=== PATIENT | female | born 1985 | race Asian ===

== ENCOUNTER 2020-01-29 16:46 | Outpatient (CLI) | payer OTHER, SELFPAY ==
[2020-01-29 18:14] LABS: Appearance Urine UA SL CLOUDY; Bilirubin Urine UA NEGATIVE (NEGATIVE); Color Urine UA YELLOW; Glucose Urine UA 1+ g/dL (Negative); Ketones Urine UA TRACE (NEGATIVE); Leukocyte Esterase Urine UA NEGATIVE (NEGATIVE); Nitrite Urine UA NEGATIVE (Negative); Occult Blood Urine UA NEGATIVE (Negative); Protein Urine UA NEGATIVE (Negative); Urobilinogen Urine UA 0.2 E.U./dL (0.2)
[2020-01-29 18:21] LABS: Amorphous Sediment Urine 1+; RBC Urine 0-1/HPF (0-5/HPF); Renal Epithelial Cells Urine 1-5/HPF (0-1/HPF); Squamous Epithelial Cell Urine 5-10 /HPF (0-5/HPF); WBC Urine 1-5/HPF (0-5/HPF)
[2020-01-29 18:22] LABS: Bacteria Urine Many (>30); Culture Indicated Urine Specimen Cultured; Mucus Urine 1+ (Negative)
--- NOTE | 2020-01-29 21:22 | P.TNLD_ITS ---
Visit Information Visit Information Date of evaluation: 01/29/20 On-call OB Provider: Zenaida Gandhi Reason for Evaluation: Yes non-stress test Comments/Additional reasons for admission: This patient is a 34yo @31 weeks gestation, presenting with suprapubic pain and pelvic pressure. The patient reports dysuria and urinary frequency, but also has a history of 32 week under unclear circumstances. She reports that she recently moved to the area, and has an upcoming appointment at the [facility]. She denies contractions, vaginal bleeding, LOF or increased discharge, decreased movement, or any other complaints. Vital Signs Vital Signs: 128/74, HR 99, T 36.1C Objective Labs Labs: Laboratory Results - last 24 hr 01/29/20 18:00 Urine Color Yellow Urine Appearance Sl cloudy Urine pH 7.0 Ur Specific [place] 1.010 Urine Protein Negative Urine Glucose (UA) 1+ H Urine Ketones Trace H Urine Occult Blood Negative Urine Nitrate Negative Urine Bilirubin Negative Urine Urobilinogen 0.2 Ur Leukocyte Esterase Negative Urine RBC 0-1/hpf Urine WBC 1-5/hpf Ur Squamous Epith Cells 5-10 /hpf H Ur Renal Epithelial Cell 1-5/hpf H Amorphous Sediment 1+ Urine Bacteria Many (>30) H Urine Mucus 1+ H Ur Culture Indicated? Specimen cultured Evaluation Evaluation Baseline heart rate: 135 Variability: Moderate (11-25) monitor accelerations: Present monitor decelerations: Absent Contraction Frequency (minutes): 0 Category of Tracing: I Cervical dilation (cm): 0 Cervical effacement (%): 20 station: -3 Laboratory results: Laboratory Tests 01/29/20 18:00 Urine Color Yellow Urine Appearance Sl cloudy Urine pH 7.0 Ur Specific [place] 1.010 Urine Protein Negative Urine Glucose (UA) 1+ H Urine Ketones Trace H Urine Occult Blood Negative Urine Nitrate Negative Urine Bilirubin Negative Urine Urobilinogen 0.2 Ur Leukocyte Esterase Negative Urine RBC 0-1/hpf Urine WBC 1-5/hpf Ur Squamous Epith Cells 5-10 /hpf H Ur Renal Epithelial Cell 1-5/hpf H Amorphous Sediment 1+ Urine Bacteria Many (>30) H Urine Mucus 1+ H Ur Culture Indicated? Specimen cultured Diagnosis, Plan/Disposition Plan/Disposition Plan: No allergies reported to nursing staff. No signs of labor with closed, long cervix and no contractions. Patient symptomatically improved with PO hydration and has UA very consistent with UTI. Home with routine precautions, macrobid called to preferred pharmacy. OB Disposition: home
== END 2020-01-29 18:48 | disposition home or self-care (01) ==
LOC: LABOR 17:18 → OB 01-30 10:57
PROVIDERS: Referring Provider Obstetrics & Gynecology; Visit Provider Obstetrics & Gynecology
DX: O26.893 Other specified pregnancy related conditions, third trimester (principal); R10.2 Pelvic and perineal pain; M54.5 Low back pain; R30.0 Dysuria; R35.0 Frequency of micturition; Z3A.31 31 weeks gestation of pregnancy
CPT/HCPCS: 59025; 59050; 81001; 87077; 87086; 87147; G0378; G0379

== ENCOUNTER 2020-02-25 13:11 | Outpatient (CLI) | payer OTHER, SELFPAY ==
[2020-02-25 13:45] LABS: Appearance Urine UA CLOUDY; Bilirubin Urine UA NEGATIVE (NEGATIVE); Color Urine UA YELLOW; Glucose Urine UA NEGATIVE (Negative); Ketones Urine UA 1+ (NEGATIVE); Leukocyte Esterase Urine UA NEGATIVE (NEGATIVE); Nitrite Urine UA NEGATIVE (Negative); Occult Blood Urine UA TRACE-LYSED (Negative); Protein Urine UA 1+ (Negative); Specific Gravity Urine UA 1.025 (1.000-1.035); Urobilinogen Urine UA 0.2 E.U./dL (0.2)
--- NOTE | 2020-02-25 14:12 | P.TNLD_ITS ---
Visit Information Visit Information Date of evaluation: 02/25/20 Primary OB Provider: Zenaida Gandhi Comments/Additional reasons for admission: This patient is a 34-year-old 102 at 35 weeks 0 days with a recent transfer of care from the [facility], presenting 3 occurs after calling with q.3 abdominal pains. 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 Denies LOF, VB, decreased movement. Reports pain is constant, associated with patient movement, is also in upper abdomen and at pubic symphysis, correlates with movement. Vital Signs Vital Signs: 138/66, HR 106 PFSH Medical History Adult body mass index 30+ (Acute) Eczema (Acute) GBS (group B streptococcus) UTI complicating (Acute ~01/29/20) Latent tuberculosis infection (Acute) Ovarian cyst (Acute) labor in second trimester with delivery (Acute ~04/18/13) Spongiotic dermatitis (Acute) Tuberculosis exposure (Acute) Family History Mother No problems noted. Father No problems noted. Grandfather Cancer Lung cancer Grandmother Diabetes mellitus Hypertension Osteoporosis Grandfather No problems noted. 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) current occupational exposures/hazards: Yes special doni needs: No Review of Systems Constitutional Constitutional: Reports system reviewed and no additional complaints, except as documented Cardiovascular Cardiovascular: Reports system reviewed and no additional complaints, except as documented Exam Const General: cooperative, healthy appearing, comfortable and acute distress Other: Per nursing staff, abdomen soft, nontender, obese Objective Labs Result Diagrams: 02/25/20 14:15 02/25/20 14:15 Labs: Laboratory Results - last 24 hr 02/25/20 13:10 Urine Color Yellow Urine Appearance Cloudy Urine pH 6.0 Ur Specific [place] 1.025 Urine Protein 1+ H Urine Glucose (UA) Negative Urine Ketones 1+ H Urine Occult Blood Trace-lysed Urine Nitrate Negative Urine Bilirubin Negative Urine Urobilinogen 0.2 Ur Leukocyte Esterase Negative Evaluation Evaluation Baseline heart rate: 135 Variability: Moderate (11-25) monitor accelerations: Present monitor decelerations: Absent Category of Tracing: Reactive Laboratory results: Laboratory Tests 02/25/20 13:10 Urine Color Yellow Urine Appearance Cloudy Urine pH 6.0 Ur Specific [place] 1.025 Urine Protein 1+ H Urine Glucose (UA) Negative Urine Ketones 1+ H Urine Occult Blood Trace-lysed Urine Nitrate Negative Urine Bilirubin Negative Urine Urobilinogen 0.2 Ur Leukocyte Esterase Negative Comments: One contraction during 1 hour of monitoring. Diagnosis, Plan/Disposition Plan/Disposition Plan: This patient does not appear to have a UTI, though she is dehydrated. Her abdominal pain is primarily with her own movement and with movement, and we discussed pubic symphysis separation pain and coping mechanisms at her last visit. Antepartum precautions were discussed, and patient has repeat visit scheduled later this week. Patient to take Tylenol, use belly support band, provided note for breaks and hydration at work. OB Disposition: home
[2020-02-25 14:25] LABS: Add Manual Diff / Slide Review NO; Basophils Absolute Auto 100 /uL (0-100); Basophils Percent Auto 0.5 % (0-2); Eosinophils Absolute Auto 100 /uL (0-450); Eosinophils Percent Auto 1.1 % (2-4); Hematocrit 35.5 % (36-46); Hemoglobin 12.2 g/dL (12.0-16.0); Lymphocytes Absolute Auto 2200 /uL (1100-4500); Lymphocytes Percent Auto 21.8 % (25-40); Mean Corpuscular HGB Conc 34.3 % (30-36); Mean Corpuscular Hemoglobin 27.5 PG (26-34); Mean Corpuscular Volume 80.4 fL (80-100); Monocytes Absolute Auto 500 /uL (0-900); Monocytes Percent Auto 5.2 % (3-14); Neutrophils Absolute Auto 7100 /uL (1500-7000); Neutrophils Percent Auto 71.4 % (50-75); Platelet Count 234 X10^3/uL (150-400); Red Blood Cell Count 4.42 X10^6/uL (4.0-5.2); Red Cell Distribution Width 13.2 % (11.6-14.8)
[2020-02-25 14:35] LABS: Aspartate Aminotransferase 17 IU/L (14-36); BUN Creatinine Ratio 11.3 (6-22); Blood Urea Nitrogen 8 mg/dL (7-17); Estimated Glomerular Filt Rate > 60.0 mL/min (>60); Uric Acid 3.5 mg/dL (2.5-6.2)
[2020-02-25 15:19] LABS: Creatinine Urine Random 239.8 mg/dL; Protein (Total) Urine Random 17 mg/dL (0-12); Protein Creatinine Ratio Urine 0.07 GRAM/24H
== END 2020-02-25 14:26 | disposition home or self-care (01) ==
LOC: OB 16:42
PROVIDERS: Referring Provider Obstetrics & Gynecology; Visit Provider Obstetrics & Gynecology
DX: O26.893 Other specified pregnancy related conditions, third trimester (principal); E86.0 Dehydration; R10.9 Unspecified abdominal pain; Z3A.35 35 weeks gestation of pregnancy
CPT/HCPCS: 36415; 59025; 81003; 82570; 84156; 84450; 84550; 85025; G0378; G0379

== ENCOUNTER 2020-03-11 20:14 | Observation (INO) | payer OTHER, SELFPAY ==
[2020-03-11 20:37] LABS: Add Manual Diff / Slide Review NO; Basophils Absolute Auto 0 /uL (0-100); Basophils Percent Auto 0.4 % (0-2); Eosinophils Absolute Auto 100 /uL (0-450); Eosinophils Percent Auto 1.4 % (2-4); Hematocrit 36.9 % (36-46); Hemoglobin 12.5 g/dL (12.0-16.0); Lymphocytes Absolute Auto 2300 /uL (1100-4500); Mean Corpuscular HGB Conc 33.8 % (30-36); Mean Corpuscular Hemoglobin 27.2 PG (26-34); Mean Corpuscular Volume 80.4 fL (80-100); Monocytes Absolute Auto 700 /uL (0-900); Neutrophils Absolute Auto 5300 /uL (1500-7000); Neutrophils Percent Auto 63.2 % (50-75); Platelet Count 254 X10^3/uL (150-400); Red Blood Cell Count 4.59 X10^6/uL (4.0-5.2); Red Cell Distribution Width 13.5 % (11.6-14.8); White Blood Cell Count 8.4 X10^3/uL (4.5-11.0)
[2020-03-11 20:52] LABS: Aspartate Aminotransferase 18 IU/L (14-36); Blood Urea Nitrogen 6 mg/dL (7-17); Estimated Glomerular Filt Rate > 60.0 mL/min (>60); Uric Acid 3.1 mg/dL (2.5-6.2)
[2020-03-11] MEDS: METOCLOPRAMIDE HCL 10 MG TABLET PO (21:03)
[2020-03-11] MEDS: ACETAMINOPHEN 325 MG TABLET 650 MG PO (21:03)
[2020-03-11 22:12] LABS: Protein (Total) Urine Random 17 mg/dL (0-12)
[2020-03-11 22:15] LABS: Creatinine Urine Random 66.8 mg/dL; Protein Creatinine Ratio Urine 0.25 GRAM/24H
--- NOTE | 2020-03-11 22:31 | PM.OBTRLD ---
Visit Information Visit Information Date of evaluation: 03/12/20 Primary OB Provider: Zenaida Gandhi Reason for Evaluation: Yes non-stress test Comments/Additional reasons for admission: Patient with a history of PIH and morbid obesity presents with 3 day DELANEY, for PIH labs and BP monitoring. Vital Signs Vital Signs: 130-134/60-78 [facility] Medical History Adult body mass index 30+ (Acute) Eczema (Acute) GBS (group B streptococcus) UTI complicating (Acute ~01/29/20) Latent tuberculosis infection (Acute) Ovarian cyst (Acute) labor in second trimester with delivery (Acute ~04/18/13) Spongiotic dermatitis (Acute) Tuberculosis exposure (Acute) Family History Mother No problems noted. Father No problems noted. Grandfather Cancer Lung cancer Grandmother Diabetes mellitus Hypertension Osteoporosis Grandfather No problems noted. 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) current occupational exposures/hazards: Yes special doni needs: No Review of Systems Constitutional Constitutional: Reports as per HPI Objective Labs Result Diagrams: 03/11/20 20:30 03/11/20 20:30 Labs: Laboratory Results - last 24 hr 03/11/20 03/11/20 03/11/20 20:30 20:30 21:00 WBC 8.4 RBC 4.59 Hgb 12.5 Hct 36.9 MCV 80.4 MCH 27.2 MCHC 33.8 RDW 13.5 Plt Count 254 Neut % (Auto) 63.2 Lymph % (Auto) 27.0 [place] % (Auto) 8.0 Eos % (Auto) 1.4 L Baso % (Auto) 0.4 Neut # (Auto) 5300 Lymph # (Auto) 2300 [place] # (Auto) 700 Eos # (Auto) 100 Baso # (Auto) 0 BUN 6 L Creatinine 0.46 L Estimated GFR > 60.0 BUN/Creatinine Ratio 13.0 Uric Acid 3.1 AST 18 U Random Total Protein 17 H Urine Creatinine 66.8 Protein/Creatinin Ratio 0.25 Evaluation Evaluation Baseline heart rate: 145 Variability: Moderate (11-25) monitor accelerations: Present monitor decelerations: Absent Laboratory results: Laboratory Tests 03/11/20 03/11/20 03/11/20 20:30 20:30 21:00 WBC 8.4 RBC 4.59 Hgb 12.5 Hct 36.9 MCV 80.4 MCH 27.2 MCHC 33.8 RDW 13.5 Plt Count 254 Neut % (Auto) 63.2 Lymph % (Auto) 27.0 Sullivan % (Auto) 8.0 Eos % (Auto) 1.4 L Baso % (Auto) 0.4 Neut # (Auto) 5300 Lymph # (Auto) 2300 [place] # (Auto) 700 Eos # (Auto) 100 Baso # (Auto) 0 BUN 6 L Creatinine 0.46 L Estimated GFR > 60.0 BUN/Creatinine Ratio 13.0 Uric Acid 3.1 AST 18 U Random Total Protein 17 H Urine Creatinine 66.8 Protein/Creatinin Ratio 0.25 Diagnosis, Plan/Disposition Plan/Disposition Plan: Improved s/p reglan and tylenol, resumed baseline BPs per transfer records and with normal PIH labs. Home with precautions and clinic f/u within next few days. OB Disposition: home
== END 2020-03-11 23:15 | disposition home or self-care (01) ==
PROVIDERS: Admitting Provider Obstetrics & Gynecology; PCP Obstetrics & Gynecology; Referring Provider Obstetrics & Gynecology; Visit Provider Obstetrics & Gynecology
DX: O26.893 Other specified pregnancy related conditions, third trimester (principal); R51 Headache; Z3A.37 37 weeks gestation of pregnancy; Z87.59 Personal history of other complications of pregnancy, childbirth and the puerperium
CPT/HCPCS: 36415; 59025; 59050; 82570; 84156; 84450; 84550; 85025; G0378; G0379

== ENCOUNTER 2020-03-14 18:57 | Outpatient (CLI) | payer OTHER, SELFPAY ==
[2020-03-14 20:20] LABS: Appearance Urine UA SL CLOUDY; Bilirubin Urine UA NEGATIVE (NEGATIVE); Color Urine UA YELLOW; Glucose Urine UA 1+ g/dL (Negative); Ketones Urine UA NEGATIVE (NEGATIVE); Leukocyte Esterase Urine UA NEGATIVE (NEGATIVE); Nitrite Urine UA NEGATIVE (Negative); Occult Blood Urine UA NEGATIVE (Negative); Protein Urine UA TRACE (Negative); RBC Urine None Seen (0-5/HPF); Specific Gravity Urine UA 1.015 (1.000-1.035); Urobilinogen Urine UA 0.2 E.U./dL (0.2)
[2020-03-14 20:25] LABS: pH Urine UA 6.5 (4.5-8.0)
[2020-03-14 20:28] LABS: Squamous Epithelial Cell Urine 5-10 /HPF (0-5/HPF); WBC Urine 5-10/HPF (0-5/HPF)
[2020-03-14 20:29] LABS: Amorphous Sediment Urine 1+; Bacteria Urine Many (>30); Culture Indicated Urine Specimen Cultured; Mucus Urine 1+ (Negative)
--- NOTE | 2020-03-14 20:50 | PM.OBTRLD ---
Visit Information Visit Information Date of evaluation: 03/14/20 Primary OB Provider: Zenaida Gandhi Reason for Evaluation: Yes rule out labor Comments/Additional reasons for admission: This patient is a 34yo P2 @37 weeks gestation presenting for evaluation for SROM and labor. Vital Signs Vital Signs: With appropriate cuff, 116-132/59-69. [facility] Medical History Adult body mass index 30+ (Acute) Eczema (Acute) GBS (group B streptococcus) UTI complicating (Acute ~01/29/20) Latent tuberculosis infection (Acute) Ovarian cyst (Acute) labor in second trimester with delivery (Acute ~04/18/13) Spongiotic dermatitis (Acute) Tuberculosis exposure (Acute) Family History Mother No problems noted. Father No problems noted. Grandfather Cancer Lung cancer Grandmother Diabetes mellitus Hypertension Osteoporosis Grandfather No problems noted. 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 Specimen cultured Evaluation Evaluation Baseline heart rate: 150 Variability: Moderate (11-25) monitor accelerations: Present monitor decelerations: Absent Category of Tracing: Reactive Laboratory results: Laboratory Tests 03/14/20 20:20 Urine Color Yellow Urine Appearance Sl cloudy Urine pH 6.5 Ur Specific [place] 1.015 Urine Protein Trace H Urine Glucose (UA) 1+ H Urine Ketones Negative Urine Occult Blood Negative Urine Nitrate Negative Urine Bilirubin Negative Urine Urobilinogen 0.2 Ur Leukocyte Esterase Negative Urine RBC None seen Urine WBC 5-10/hpf H Ur Squamous Epith Cells 5-10 /hpf H Amorphous Sediment 1+ Urine Bacteria Many (>30) H Urine Mucus 1+ H Ur Culture Indicated? Specimen cultured Non-invasive Membranes Rupture Test: negative Diagnosis, Plan/Disposition Plan/Disposition Plan: Patient not ruptured, UA + for signs of UTI. Discharged with PO keflex and precautions. OB Disposition: home
== END 2020-03-14 20:46 | disposition home or self-care (01) ==
LOC: LABOR 18:59 → OB 03-17 12:31
PROVIDERS: PCP Obstetrics & Gynecology; Referring Provider Obstetrics & Gynecology; Visit Provider Obstetrics & Gynecology
DX: Z34.83 Encounter for supervision of other normal pregnancy, third trimester (principal); Z3A.37 37 weeks gestation of pregnancy
CPT/HCPCS: 59025; 59050; 81001; 84112; 87086; G0378; G0379

== ENCOUNTER 2020-03-18 18:33 | Outpatient (CLI) | payer OTHER, SELFPAY ==
[2020-03-18] MEDS: BUTALB/APAP/CAFFEINE 50/325/40 TABLET 1 EACH PO (19:29)
[2020-03-18] MEDS: METOCLOPRAMIDE HCL 10 MG TABLET PO (19:29)
--- NOTE | 2020-03-19 07:02 | PM.OBTRLD ---
Visit Information Visit Information Date of evaluation: 03/18/20 Primary OB Provider: Zenaida Gandhi On-call OB Provider: Arabella Pleitez Reason for Evaluation: Yes other Comments/Additional reasons for admission: 34YO @[id number]. Here for evaluation for DELANEY x 1 week, concerned for preeclampsia and decreased movement. Took Tylenol prior to coming in and has had minimal relief, though biggest concern is preeclampsia, not pain. Minimal FM since this morning. Routine OB care w/ , last seen in clinic yesterday. In triage from [id number]. [facility] Medical History Adult body mass index 30+ (Acute) Eczema (Acute) GBS (group B streptococcus) UTI complicating (Acute ~01/29/20) Latent tuberculosis infection (Acute) Ovarian cyst (Acute) labor in second trimester with delivery (Acute ~04/18/13) Spongiotic dermatitis (Acute) Tuberculosis exposure (Acute) Family History Mother No problems noted. Father No problems noted. Grandfather Cancer Lung cancer Grandmother Diabetes mellitus Hypertension Osteoporosis Grandfather No problems noted. 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 HR-88bpm, RR18/min, T97.5F Temporal Presentation: vertex Evaluation Evaluation Baseline heart rate: 140 Variability: Moderate (11-25) monitor accelerations: Present monitor decelerations: Absent Contraction Frequency (minutes): 0 Diagnosis, Plan/Disposition Final Diagnosis (1) Decreased movement: Status: Acute (2) Headache: Status: Acute Plan/Disposition Plan: Given BP of 130/80 @ 10wk OB visit, BP complication is unlikely. Reassurance given of normal BP and reactive NST. Recommend she follow-up with her OB provider tomorrow for her persistent DELANEY. Encouraged RN to notify provider if patient desires pain relief for DELANEY prior to d/c to home. OB Disposition: home
== END 2020-03-18 19:35 | disposition home or self-care (01) ==
LOC: LABOR 19:03 → OB 03-21 12:41
PROVIDERS: PCP Obstetrics & Gynecology; Referring Provider Nurse Practitioner Obstetrics & Gynecology; Visit Provider Nurse Practitioner Obstetrics & Gynecology
DX: O36.8130 Decreased fetal movements, third trimester, not applicable or unspecified (principal); R51 Headache; Z3A.38 38 weeks gestation of pregnancy
CPT/HCPCS: 59025; G0378; G0379

== ENCOUNTER → 2020-03-22 14:14 | Outpatient (CLI) | payer OTHER, SELFPAY ==
[2020-03-23 16:31] LABS: COVID19 Sendout Not Detected (Not Detect)
== END ==
PROVIDERS: PCP Obstetrics & Gynecology; Visit Provider Physician Assistant
DX: Z11.59 Encounter for screening for other viral diseases (principal)
CPT/HCPCS: 87635

== ENCOUNTER 2020-03-25 07:12 | Inpatient (IN) | payer OTHER, SELFPAY ==
--- NOTE | 2020-03-25 07:54 | PM.OBHP.1 ---
OB HPI Date/Time Date of admission: 03/25/20 Date Patient Seen: 03/25/20 Time Patient Seen: 07:54 History of Present Condition Chief complaint: observation of labor : 3 Para: 2 Estimated Date of Delivery: 03/31/20 Estimated Gestational Age (weeks): 39 Narrative: Yana Morejon is a 35 year old 102 @39+1 presenting for induction of labor. The patient reports that she has ongoing migraines that are unchanged since her prior PIH evaluation, reports ongoing musculoskeletal pain, but has no obstetrical complaints and no other PIH complaints today. Her was complicated by transfer of care at 34 weeks from the [facility], by GBS bacteriuria, and by morbid obesity. The patient has a history of 32 week delivery with her 1st , but has not been on [place] during this . She reports a history of PIH, but has not been on aspirin during this . Per records review, her has been otherwise uncomplicated, with a negative evaluation for gestational diabetes and normal anatomy scans. Indications Indication for induction OB: maternal discomfort and other (History of PIH, history of large baby) History of Present care: good care, initiated at week # (10), number of visits (12) and pounds weight gain (27) Dating criteria: based on 1st trimester US only Ultrasounds: normal mid trimester US Obstetrical complications: none Medical complications: genitourinary (Recurrent UTIs) Preadmission Labs -: GBS status: positive (Bacteriuria), HBsAG: negative, HIV: negative and RPR/VDLR: negative -: Chlamydia screen: not detected and Gonorrhea screen: not detected -: Rubella: immune and Varicella: not immune HCAB: negative PAP: Normal (september 05 2019, hpv negative) Integrated screen: Performed and [facility] and negative 3 hr GTT: 1 hr (184), 2 hr (125) and 3 hr (131) Fasting blood glucose: 80 Prior (ies) History: G1: 04/18/13, 32 weeks, , M, labor G2: 11/07/15, 38 weeks, , F, PIH/preeclampsia- reports 8#12 Evaluation Evaluation Baseline heart rate: 150 Variability: Moderate (11-25) monitor accelerations: Present monitor decelerations: Absent Category of Tracing: Reactive PFSH Medical History Adult body mass index 30+ (Acute) Eczema (Acute) GBS (group B streptococcus) UTI complicating (Acute ~01/29/20) Latent tuberculosis infection (Acute) Ovarian cyst (Acute) labor in second trimester with delivery (Acute ~04/18/13) Spongiotic dermatitis (Acute) Tuberculosis exposure (Acute) Family History Mother No problems noted. Father No problems noted. Grandfather Cancer Lung cancer Grandmother Diabetes mellitus Hypertension Osteoporosis Grandfather No problems noted. 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) current occupational exposures/hazards: Yes special doni needs: No Smoking Status: Never smoker Meds Home Medications and Allergies Home Medications Medication Instructions Recorded Confirmed Type nitrofurantoin monohyd/m-cryst 100 mg PO BID #10 cap 01/29/20 02/29/20 Rx [Macrobid] hydroxyprogesterone cap(ppres) 250 250 mg IM QWEEK 02/18/20 02/29/20 History mg/mL IM oil prenat.vits,huy,fdz-pjvd-ykvah 1 tab PO DAILY 02/18/20 02/29/20 History cephalexin 500 mg capsule 500 mg PO Q12H #14 cap 03/15/20 Rx Allergies Allergy/AdvReac Type Severity Reaction Status Date / Time Fish Containing Products Allergy Intermediate Verified 02/29/20 16:48 Latex, Natural Rubber Allergy Intermediate Rash Verified 02/29/20 16:48 pineapple Allergy Intermediate Rash and Verified 02/29/20 16:48 Hives Review of Systems Constitutional Constitutional: Reports system reviewed and no additional complaints, except as documented Cardiovascular Cardiovascular: Reports system reviewed and no additional complaints, except as documented Respiratory Respiratory: Reports system reviewed and no additional complaints, except as documented Gastrointestinal Gastrointestinal: Reports system reviewed and no additional complaints, except as documented Genitourinary Genitourinary: Reports as per HPI Neurologic Neurologic: Reports as per HPI Exam Vital Signs (past 8 hours): 135/83 HR 98 Const General: cooperative, healthy appearing and comfortable Other: lying in bed, encouraged to ambulate or sit on birthing ball Resp Effort & Inspection: normal respiratory effort Auscultation: clear to auscultation bilaterally Cardio Rate: regular rate Rhythm: regular rhythm GI Palpation: soft and No tender Extrem General: normal to inspection Objective Labs Result Diagrams: 03/25/20 08:15 Assessment and Plan Assessment and Plan Assessment and Plan narrative: This patient presents for induction of labor for a history of PIH and large babies, with a favorable cervix. She will be induced with pitocin per protocol. She will receive penicillin per protocol given her history of GBS bacteriuria. Plan for AROM at time of 2nd dose of penicillin if patient does not SROM prior to this. -continuous electronic monitoring, toco -routine and PIH labs pending
[2020-03-25] MEDS: LACTATED RINGERS 1,000 ML 100 ML IV ×2 (08:54→17:00)
[2020-03-25] MEDS: OXYTOCIN PREMIX 30 UNIT/500 ML PLAST..BAG IV (08:54)
[2020-03-25] MEDS: PENICILLIN G POTASSIUM 5,000,000 UNIT in DEXTROSE 5% IN WATER 250 ML IV (09:16)
[2020-03-25 10:47] VITALS: BP 132/68
--- NOTE | 2020-03-25 13:15 | PM.OBPNLAB ---
Date/Time Date Patient Seen: 03/25/20 Time Patient Seen: 12:45 Pain Control Pain control: tolerating well Comments: Intermittent pressure with contractions Pelvic Exam Dilation (cm): 3 Effacement (%): 75 station: -1 Amniotic membrane status: Intact Comments: Cervix very anterior, attempted AROM but unsuccessful. Returned an AROM successful at 2:50 a.m., copious clear fluid. Contractions Pitocin rate (mU/min): 18 Contraction frequency (min): 3 Contraction pattern: Regular Contraction intensity: Moderate Status status: Category l Heart Rate Baseline: 150 Monitor Accelerations: Present Monitor Decelerations: Absent Monitor Variability: Moderate Comments: Vital signs stable Assessment and Plan Assessment: induction ongoing Plan: continuous present management
[2020-03-25] MEDS: PENICILLIN G POTASSIUM 3,000,000 UNIT/50 ML FROZ.PIGGY 100 UNIT IV ×2 (13:45→17:50)
[2020-03-25 14:06] LABS: Add Manual Diff / Slide Review NO; Basophils Percent Auto 0.3 % (0-2); Eosinophils Percent Auto 1.6 % (2-4); Hematocrit 37.1 % (36-46); Hemoglobin 12.6 g/dL (12.0-16.0); Lymphocytes Percent Auto 27.8 % (25-40); Mean Corpuscular Hemoglobin 27.6 PG (26-34); Mean Corpuscular Volume 81.1 fL (80-100); Monocytes Percent Auto 6.1 % (3-14); Neutrophils Percent Auto 64.2 % (50-75); Platelet Count 226 X10^3/uL (150-400); Red Blood Cell Count 4.57 X10^6/uL (4.0-5.2); Red Cell Distribution Width 13.6 % (11.6-14.8); White Blood Cell Count 7.7 X10^3/uL (4.5-11.0)
[2020-03-25 14:07] LABS: Basophils Absolute Auto 0 /uL (0-100); Eosinophils Absolute Auto 100 /uL (0-450); Lymphocytes Absolute Auto 2100 /uL (1100-4500); Monocytes Absolute Auto 500 /uL (0-900); Neutrophils Absolute Auto 4900 /uL (1500-7000)
[2020-03-25 17:08] VITALS: TEMP 36
[2020-03-25] MEDS: ACETAMINOPHEN 325 MG TABLET 650 MG PO (17:08)
[2020-03-25] MEDS: miSOPROStoL 200 MCG TABLET 800 MCG PR (19:40)
--- NOTE | 2020-03-25 19:57 | P.PCNOB_ITS ---
Labor & Delivery Delivery date: 03/25/20 Intrapartal events: Abruptio Placenta, Acceleration and Deceleration Cervical ripening method: none Induction method: per pitocin protocol Delivery augmentation: rupture of membranes Delivery monitor: external FHT and external uterine Route of delivery: L&D Laceration Description: Periurethral - 1st Degree (spontaneously hemostatic) Estimated blood loss (mL): 300 Anesthesia type: Epidural Narrative: This patient was a 35-year-old now para 3 admitted for elective induction of labor in the setting of increasing blood pressures and a history of PIH, favorable cervix, and history of large babies. Patient was induced with Pitocin and augmented with AROM. She progressed rapidly through to the active phase of labor in the setting of recurrent prolonged deceleration. After short 2nd stage, she was delivered of a healthy baby girl from direct OA presentation, with reduction of a loose nuchal cord at the perineum. The shoulders delivered with ease. The placenta delivered spontaneously and intact shortly thereafter, with a three-vessel cord. The placenta was notable for signs of significant placental abruption, with approximately 1/3 of the placenta covered with adherent clot the patient had had no vaginal bleeding and clear amniotic fluid. The patient had a persistent lower uterine segment atony, and received 100 mg of rectal Cytotec along with Pitocin per protocol. There were no other intrapartum or immediate complications. [place] Baby [place]: Infant gender: Female Presentation: vertex position: Right Occiput Anterior Placenta delivery description: Spontaneous cord vessel description: Nuchal Cord (Loose, easily reduced, three- vessel) score (1 min): 9 score (5 min): 9 Plan for aftercare: Routine care. Close monitoring of vital signs.
[2020-03-26] MEDS: PRENATAL VIT,CALC/IRON/FOLIC 1 TABLET 1 TAB PO (09:35)
[2020-03-26] MEDS: DOCUSATE 100 MG CAPSULE PO (09:35)
[2020-03-26 15:27] VITALS: BP 138/83; PULSE 109; RESP 17; TEMP 36.3
--- NOTE | 2020-03-27 07:37 | P.DS_ITS ---
Discharge Providers Provider Date of admission: 03/25/20 07:12 Discharge Date: 03/26/20 Primary care physician: Zenaida Gandhi MD Discharge provider: Kelli Lincoln MD Summary Hospital Course Date Patient Seen: 03/26/20 Time Patient Seen: 14:30 Procedures: Pitocin induction of labor Epidural analgesia Spontaneous vaginal delivery Hospital Course: Patient is a 35-year-old 3 para 3 day # 1 status post spontaneous vaginal delivery after induction of labor secondary to gestational hypertension and history of large babies. She was admitted and started on penicillin for group B strep prophylaxis. She was started on Pitocin protocol 2. She progressed in labor. Artificial rupture of membranes were performed. She received an epidural for pain management. She had a spontaneous vaginal delivery without complications. She had more than usual bleeding and received Cytotec 800 micro g rectally. Her course was unremarkable. She is discharged to home. She will follow up in 1 week for blood pressure check, and 6 weeks for her exam. Peripartum Data Infant Delivery Method: Natural Vaginal Laceration Description: None Episiotomy description: None Procedures: Pitocin induction of labor Group B strep prophylaxis Epidural analgesia Spontaneous vaginal delivery complications: uterine atony (Received Cytotec 800 micro g rectally) [place] 1: Gender: Female Disposition of : home Status at Discharge Cognitive/behavioral status at discharge: oriented Functional status at discharge: independent ambulation Overall status at discharge: patient is progressing back to baseline Time Spent with Patient Time attestation: Total time spent providing and/or coordinating discharge services: Time spent: Less than 30 minutes Objective Labs Result Diagrams: 03/25/20 08:15 Discharge Plan Discharge Plan Patient Disposition: Home Discharge comment: Call with fever, chills or bleeding vaginally more than a pad in an hour Ibuprofen 600-800mg every 6 hours as needed Discharge orders & Medications Prescriptions: Continued prenat.vits,huy,[id number] Tablet 1 tab PO DAILY RF: 0 Discontinued hydroxyprogesterone cap(ppres) [[place]] 250 mg/mL oil 250 mg IM QWEEK RF: 0 cephalexin [Keflex] 500 mg capsule 500 mg PO Q12H Qty: 14 RF: 0 nitrofurantoin monohyd/m-cryst [Macrobid] 100 mg capsule 100 mg PO BID Qty: 10 RF: 0 Follow up/Referrals: Zenaida Gandhi MD [Primary Care Provider] - 6 Weeks (Pt will have BP check on Tuesday with baby's appt Pt will call for 6 week post appt) Diet/Activity/Treatments Diet: Regular Activity: No intercourse Skin/Wound/Dressing Care Report to your healthcare provider any signs of infection, such as:: chills, fever, night sweats, increased pain, unusual drainage and unusual redness Visit Report/Discharge Packet Instructions: DI for Labor and Delivery, Vaginal Stand Alone Forms: Discharge: Care Visit Report Forms: Patient Portal/API, Stroke Signs & Symptoms Discharge Data Primary Care Provider: Zenaida Gandhi Discharges patient from system. Discharge Date/Time: 03/26/20 16:10
== END 2020-03-26 16:10 | disposition home or self-care (01) | DRG 807 ==
PROVIDERS: Admitting Provider Obstetrics & Gynecology; PCP Obstetrics & Gynecology; Referring Provider Obstetrics & Gynecology; Visit Provider Obstetrics & Gynecology
DX: O98.82 Other maternal infectious and parasitic diseases complicating childbirth (principal); O26.813 Pregnancy related exhaustion and fatigue, third trimester; E66.01 Morbid (severe) obesity due to excess calories; O71.82 Other specified trauma to perineum and vulva; O69.81X0 Labor and delivery complicated by cord around neck, without compression, not applicable or unspecified; Z3A.39 39 weeks gestation of pregnancy; Z37.0 Single live birth; Z11.59 Encounter for screening for other viral diseases
CPT/HCPCS: 01967; 36415; 59050; 59410; 76815; 85025; 86850; 86900; 86901; G0379; J2540; J2590; S0191

== ENCOUNTER → 2020-04-04 15:10 | Outpatient (CLI) | payer OTHER, SELFPAY ==
[2020-04-04 15:37] LABS: Add Manual Diff / Slide Review NO; Basophils Absolute Auto 100 /uL (0-100); Eosinophils Absolute Auto 200 /uL (0-450); Eosinophils Percent Auto 1.4 % (2-4); Hemoglobin 12.6 g/dL (12.0-16.0); Lymphocytes Absolute Auto 2900 /uL (1100-4500); Lymphocytes Percent Auto 26.3 % (25-40); Mean Corpuscular HGB Conc 32.3 % (30-36); Mean Corpuscular Hemoglobin 26.4 PG (26-34); Mean Corpuscular Volume 81.6 fL (80-100); Monocytes Absolute Auto 700 /uL (0-900); Monocytes Percent Auto 6.3 % (3-14); Neutrophils Absolute Auto 7100 /uL (1500-7000); Platelet Count 330 X10^3/uL (150-400); Red Blood Cell Count 4.79 X10^6/uL (4.0-5.2); Red Cell Distribution Width 13.9 % (11.6-14.8)
[2020-04-04 15:57] LABS: Alanine Aminotransferase 19 IU/L (<35); Aspartate Aminotransferase 23 IU/L (14-36); BUN Creatinine Ratio 13.4 (6-22); Blood Urea Nitrogen 9 mg/dL (7-17); Estimated Glomerular Filt Rate > 60.0 mL/min (>60); Uric Acid 6.8 mg/dL (2.5-6.2)
== END ==
PROVIDERS: Referring Provider Obstetrics & Gynecology; Visit Provider Obstetrics & Gynecology
DX: O14.95 Unspecified pre-eclampsia, complicating the puerperium (principal); R51.9 Headache, unspecified
CPT/HCPCS: 36415; 82565; 84450; 84460; 84520; 84550; 85025

== ENCOUNTER 2020-04-04 16:37 | Emergency (ER) | payer OTHER, SELFPAY ==
[2020-04-04 16:48] VITALS: BP 157/81; PULSE 97; RESP 24; TEMP 36.1; O2SAT 97; BMI 49.8
--- NOTE | 2020-04-04 17:01 | DI.CT.S_ITS ---
PROCEDURE: CT ANGIO CHEST PE PROTOCOL INDICATIONS: dyspnea, orthopnea, tachycardia 10 days TECHNIQUE: After the administration of intravenous contrast, 2 mm thick sections acquired from the pulmonary apices to the posterior costophrenic angles. 3-dimensional maximum intensity projection (MIP) coronal and sagittal reformats were then acquired through the thorax. For radiation dose reduction, the following was used: automated exposure control, adjustment of mA and/or kV according to patient size. COMPARISON: None. FINDINGS: Image quality: Excellent. Pulmonary arteries: Pulmonary arteries are normal in size, and demonstrate no intraluminal filling defects to suggest central pulmonary embolism. Lungs and pleura: Generalized ground-glass opacities can be seen in a patchy fashion. No pleural effusions or pneumothorax. Central and peripheral airways are patent. Mediastinum: Heart size is moderately enlarged, without pericardial effusion. No mediastinal or hilar adenopathy. Thoracic aorta is normal in caliber and enhancement. Esophagus is normal in caliber, without hiatal hernia. Bones and chest wall: No suspicious bony lesions. Ribs and thoracic spine appear intact throughout. Thyroid gland demonstrates no significant abnormality. No axillary or supraclavicular adenopathy. Abdomen: There is reflux of contrast seen into the inferior vena cava and into the hepatic veins. Diffuse fatty liver infiltration is noted. Diffuse fatty liver infiltration is noted. Diffuse fatty liver infiltration is noted. The visualized portions of the upper abdominal structures are otherwise unremarkable for imaging technique. IMPRESSION: Negative for pulmonary embolism. Cardiomegaly, with apparent pulmonary edema, with reflux of contrast seen into the inferior vena cava and into the patent veins. Please correlate with cardiac dysfunction. Dictated by: Gerardo Enamorado M.D. on 04/04/2020 at 16:30 Approved by: Gerardo Enamorado M.D. on 04/04/2020 at 16:32
--- NOTE | 2020-04-04 17:05 | ED.CHESTPAIN ---
HPI - Chest Pain <Shanti Begum MD - Last Filed: 04/12/20 00:00> General Chief Complaint: Chest Pain Stated Complaint: SOB, after giving Time Seen by Provider: 04/04/20 16:50 Source: patient Mode of arrival: Ambulatory Limitations: no limitations History of Present Illness HPI narrative: 35-year-old induced at 39 weeks with concerns for developing preeclampsia likely with essential hypertension and untreated gestational diabetes presents with increasing dyspnea and now developing orthopnea. She saw her OBGYN this morning and noted that she was slightly short of breath beginning about 7 days ago and then noticing more exertional dyspnea and today is complaining about orthopnea. She notes that she is taking 800 mg of ibuprofen 2 to 3 times a day and has had a slight increase in lower extremity edema over the last week. She denies fevers, chills, cough, abdominal pain. She is breast-feeding, continues to have very light lochia. She describes occasional dizziness and occasional times where it feels like her chest is particularly heavy. Related Data Home Medications Medication Instructions Recorded Confirmed prenat.vits,huy,[id number] 1 tab PO DAILY 02/18/20 04/04/20 ibuprofen 800 mg tablet 800 mg PO BID tab 04/04/20 04/04/20 Allergies Allergy/AdvReac Type Severity Reaction Status Date / Time Fish Containing Products Allergy Intermediate Verified 04/04/20 15:46 Latex, Natural Rubber Allergy Intermediate Rash Verified 04/04/20 15:46 pineapple Allergy Intermediate Rash and Verified 04/04/20 15:46 Hives Review of Systems <Shanti Begum MD - Last Filed: 04/12/20 00:00> Review of Systems Narrative: Remainder of review of systems including constitutional, ENT, cardiovascular, respiratory, GI, , musculoskeletal, skin, neurologic and psychiatric systems reviewed and are unremarkable except as noted in HPI. Patient History <Shanti Begum MD - Last Filed: 04/12/20 00:00> Medical History Adult body mass index 30+ (Acute) Eczema (Acute) GBS (group B streptococcus) UTI complicating (Acute ~01/29/20) Latent tuberculosis infection (Acute) Ovarian cyst (Acute) labor in second trimester with delivery (Acute ~04/18/13) Spongiotic dermatitis (Acute) Tuberculosis exposure (Acute) Family History Mother No problems noted. Father No problems noted. Grandfather Cancer Lung cancer Grandmother Diabetes mellitus Hypertension Osteoporosis Grandfather No problems noted. 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 : [employer] - wants to be an RN) occupational status: employed (working some as a [employer]ing [employer]) current occupational exposures/hazards: Yes special doin needs: No Smoking Status: Never smoker Smoking Status: Never smoker alcohol intake frequency: 0-2 drinks per day Substance Use Type: does not use Exam <Shanti Begum MD - Last Filed: 04/12/20 00:00> Narrative Exam Narrative: General: Obese, Healthy appearing, in no acute distress. Able to give a complete and coherent history. Well-nourished well-developed HEENT: Moist mucous membranes, normal sclera with reactive pupils, Neck: No JVD, supple, no adenopathy Respiratory: Lungs are clear to auscultation, no wheezing no rales no rhonchi. Full and symmetrical air movement Cardiac: Regular rate and rhythm with an occasional early beat. No murmurs no bruits Abdomen: Soft, obese, I do not appreciate an enlarged fundus but habitus makes exam challenging. Nontender, good bowel tones, no flank pain Skin: Warm and dry, no rashes Neurologic: Grossly neurologically intact with no obvious asymmetries or abnormalities Extremities: No trauma, well perfused, 2+ nonpitting edema bilaterally Psych: Cooperative, appropriate insight and affect Initial Vital Signs Initial Vital Signs: Vital Signs Temperature 97.0 F L 04/04/20 16:48 Pulse Rate 97 H 04/04/20 16:48 Respiratory Rate 24 04/04/20 16:48 Blood Pressure 157/81 H 04/04/20 16:48 Pulse Oximetry 97 04/04/20 16:48 <Alcides Hunter DO - Last Filed: 04/04/20 22:37> Initial Vital Signs Initial Vital Signs: Vital Signs Temperature 97.0 F L 04/04/20 16:48 Pulse Rate 97 H 04/04/20 16:48 Respiratory Rate 24 04/04/20 16:48 Blood Pressure 157/81 H 04/04/20 16:48 Pulse Oximetry 97 04/04/20 16:48 Course <Shanti Begum MD - Last Filed: 04/12/20 00:00> Orders Ordered: Discontinued Medications Furosemide (Lasix) 40 mg IV NOW ONE Stop: 04/04/20 19:57 Last Admin: 04/04/20 20:18 Dose: 40 mg Documented by: TIANNA Vital Signs Vital signs: Vital Signs - 8 hr 04/04/20 16:48 04/04/20 19:14 04/04/20 22:10 Temperature 97.0 F L Pulse Rate 97 H 80 94 H Respiratory Rate 24 18 28 H Blood Pressure 157/81 H 126/62 140/68 Pulse Oximetry 97 97 98 <Alcides Hunter DO - Last Filed: 04/04/20 22:37> Course Course Narrative: Patient received in sign-out from Dr. Begum. Have performed an independent history and physical and have no significant additions. 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 In agreement with assessment and plan, but ask that we contact hospitalist and OB will be involved in consultation if need be Consultation #3: hospitalist at [facility] is happy to accept. Patient is aware of and in complete agreement wit the plan. Questions answered to her apparent satisfaction. Vital Signs Vital signs: Vital Signs - 8 hr 04/04/20 16:48 04/04/20 19:14 04/04/20 22:10 Temperature 97.0 F L Pulse Rate 97 H 80 94 H Respiratory Rate 24 18 28 H Blood Pressure 157/81 H 126/62 140/68 Pulse Oximetry 97 97 98 MDM - Chest Pain <Shanti Begum MD - Last Filed: 04/12/20 00:00> Medical Records Data Attestation: I reviewed the patient's medical records. Lab Data Result diagrams: 04/04/20 17:00 04/04/20 17:00 Labs: Lab Results 04/04/20 04/04/20 04/04/20 Range/Units 17:00 17:00 17:00 WBC 10.1 (4.5-11.0) X10^3/uL RBC 4.56 (4.0-5.2) X10^6/uL Hgb 12.4 (12.0-16.0) g/dL Hct 37.1 (36-46) % MCV 81.3 (80-100) fL MCH 27.2 (26-34) PG MCHC 33.5 (30-36) % RDW 13.7 (11.6-14.8) % Plt Count 327 (150-400) X10^3/uL Neut % (Auto) 64.2 (50-75) % Lymph % (Auto) 28.2 (25-40) % [place] % (Auto) 5.0 (3-14) % Eos % (Auto) 1.4 L (2-4) % Baso % (Auto) 1.2 (0-2) % Neut # (Auto) 6500 (2432-4500) /uL Lymph # (Auto) 2800 (1620-3235) /uL [place] # (Auto) 500 (0-900) /uL Eos # (Auto) 100 (0-450) /uL Baso # (Auto) 100 (0-100) /uL D-Dimer 281 H (<230) ng/mL Sodium 138 (137-145) mmol/L Potassium 4.2 (3.4-5.1) mmol/L Chloride 106 (98-107) mmol/L Carbon Dioxide 25 (22-32) mmol/L BUN 9 (7-17) mg/dL Creatinine 0.63 (0.52-1.04) mg/dL Estimated GFR > 60.0 (>60) mL/min BUN/Creatinine Ratio 14.3 (6-22) Glucose 102 H (70-100) mg/dL Calcium 8.8 (8.4-10.2) mg/dL Magnesium 2.0 (1.6-2.3) mg/dL Total Bilirubin 0.3 (0.2-1.3) mg/dL AST 23 (14-36) IU/L ALT 18 (<35) IU/L Alkaline Phosphatase 74 (38-126) U/L Troponin I < 0.012 (0.01-0.034) ng/mL NT-Pro-B Natriuret Pep 331 H (<125) pg/mL Total Protein 6.9 (6.3-8.2) g/dL Albumin 3.7 (3.5-5.0) g/dL Globulin 3.2 (1.7-4.1) g/dL Albumin/Globulin Ratio 1.2 (1.0-2.8) Urine Color Urine Appearance Urine pH (4.5-8.0) Ur Specific [place] (1.000-1.035) Urine Protein (Negative) Urine Glucose (UA) (Negative) g/dL Urine Ketones (NEGATIVE) Urine Occult Blood (Negative) Urine Nitrate (Negative) Urine Bilirubin (NEGATIVE) Urine Urobilinogen (0.2) E.U./dL Ur Leukocyte Esterase (NEGATIVE) Urine RBC (0-5/HPF) Urine WBC (0-5/HPF) Ur Squamous Epith Cells (0-5/HPF) Urine Bacteria (None) Ur Culture Indicated? COVID-19 PCR (Negative) 04/04/20 04/04/20 Range/Units 17:30 17:30 WBC (4.5-11.0) X10^3/uL RBC (4.0-5.2) X10^6/uL Hgb (12.0-16.0) g/dL Hct (36-46) % MCV (80-100) fL MCH (26-34) PG MCHC (30-36) % RDW (11.6-14.8) % Plt Count (150-400) X10^3/uL Neut % (Auto) (50-75) % Lymph % (Auto) (25-40) % [place] % (Auto) (3-14) % Eos % (Auto) (2-4) % Baso % (Auto) (0-2) % Neut # (Auto) (9471-8888) /uL Lymph # (Auto) (0092-6200) /uL [place] # (Auto) (0-900) /uL Eos # (Auto) (0-450) /uL Baso # (Auto) (0-100) /uL D-Dimer (<230) ng/mL Sodium (137-145) mmol/L Potassium (3.4-5.1) mmol/L Chloride (98-107) mmol/L Carbon Dioxide (22-32) mmol/L BUN (7-17) mg/dL Creatinine (0.52-1.04) mg/dL Estimated GFR (>60) mL/min BUN/Creatinine Ratio (6-22) Glucose (70-100) mg/dL Calcium (8.4-10.2) mg/dL Magnesium (1.6-2.3) mg/dL Total Bilirubin (0.2-1.3) mg/dL AST (14-36) IU/L ALT (<35) IU/L Alkaline Phosphatase (38-126) U/L Troponin I (0.01-0.034) ng/mL NT-Pro-B Natriuret Pep (<125) pg/mL Total Protein (6.3-8.2) g/dL Albumin (3.5-5.0) g/dL Globulin (1.7-4.1) g/dL Albumin/Globulin Ratio (1.0-2.8) Urine Color Yellow Urine Appearance Cloudy Urine pH 6.0 (4.5-8.0) Ur Specific [place] 1.015 (1.000-1.035) Urine Protein Negative (Negative) Urine Glucose (UA) Trace H (Negative) g/dL Urine Ketones Negative (NEGATIVE) Urine Occult Blood 3+ H (Negative) Urine Nitrate Negative (Negative) Urine Bilirubin Negative (NEGATIVE) Urine Urobilinogen 0.2 (0.2) E.U./dL Ur Leukocyte Esterase 2+ H (NEGATIVE) Urine RBC 30-100/hpf H (0-5/HPF) Urine WBC 10-30/hpf H (0-5/HPF) Ur Squamous Epith Cells 5-10 /hpf H (0-5/HPF) Urine Bacteria Few (2-10) H (None) Ur Culture Indicated? Cult not indicated COVID-19 PCR Negative (Negative) ECG Data Interpretation: Sinus rhythm rate of 80 with frequent PVCs, 3-1 bigeminy Inferior Q-waves lead III Right ventricular hypertrophy No ST elevation MDM Narrative Medical decision making narrative: 35-year-old 10 days with increasing dyspnea and now orthopnea without fevers. High risk for pulmonary embolism CT scan is ordered lab work has been started. Risk for cardiomyopathy as well. Repeat Covid study will be done. Will re-evaluate when labs and studies return <Alcides Hunter DO - Last Filed: 04/04/20 22:37> Lab Data Labs: Lab Results 04/04/20 04/04/20 04/04/20 Range/Units 17:00 17:00 17:00 WBC 10.1 (4.5-11.0) X10^3/uL RBC 4.56 (4.0-5.2) X10^6/uL Hgb 12.4 (12.0-16.0) g/dL Hct 37.1 (36-46) % MCV 81.3 (80-100) fL MCH 27.2 (26-34) PG MCHC 33.5 (30-36) % RDW 13.7 (11.6-14.8) % Plt Count 327 (150-400) X10^3/uL Neut % (Auto) 64.2 (50-75) % Lymph % (Auto) 28.2 (25-40) % [place] % (Auto) 5.0 (3-14) % Eos % (Auto) 1.4 L (2-4) % Baso % (Auto) 1.2 (0-2) % Neut # (Auto) 6500 (1818-6244) /uL Lymph # (Auto) 2800 (7450-1897) /uL [place] # (Auto) 500 (0-900) /uL Eos # (Auto) 100 (0-450) /uL Baso # (Auto) 100 (0-100) /uL D-Dimer 281 H (<230) ng/mL Sodium 138 (137-145) mmol/L Potassium 4.2 (3.4-5.1) mmol/L Chloride 106 (98-107) mmol/L Carbon Dioxide 25 (22-32) mmol/L BUN 9 (7-17) mg/dL Creatinine 0.63 (0.52-1.04) mg/dL Estimated GFR > 60.0 (>60) mL/min BUN/Creatinine Ratio 14.3 (6-22) Glucose 102 H (70-100) mg/dL Calcium 8.8 (8.4-10.2) mg/dL Magnesium 2.0 (1.6-2.3) mg/dL Total Bilirubin 0.3 (0.2-1.3) mg/dL AST 23 (14-36) IU/L ALT 18 (<35) IU/L Alkaline Phosphatase 74 (38-126) U/L Troponin I < 0.012 (0.01-0.034) ng/mL NT-Pro-B Natriuret Pep 331 H (<125) pg/mL Total Protein 6.9 (6.3-8.2) g/dL Albumin 3.7 (3.5-5.0) g/dL Globulin 3.2 (1.7-4.1) g/dL Albumin/Globulin Ratio 1.2 (1.0-2.8) Urine Color Urine Appearance Urine pH (4.5-8.0) Ur Specific [place] (1.000-1.035) Urine Protein (Negative) Urine Glucose (UA) (Negative) g/dL Urine Ketones (NEGATIVE) Urine Occult Blood (Negative) Urine Nitrate (Negative) Urine Bilirubin (NEGATIVE) Urine Urobilinogen (0.2) E.U./dL Ur Leukocyte Esterase (NEGATIVE) Urine RBC (0-5/HPF) Urine WBC (0-5/HPF) Ur Squamous Epith Cells (0-5/HPF) Urine Bacteria (None) Ur Culture Indicated? COVID-19 PCR (Negative) 04/04/20 04/04/20 Range/Units 17:30 17:30 WBC (4.5-11.0) X10^3/uL RBC (4.0-5.2) X10^6/uL Hgb (12.0-16.0) g/dL Hct (36-46) % MCV (80-100) fL MCH (26-34) PG MCHC (30-36) % RDW (11.6-14.8) % Plt Count (150-400) X10^3/uL Neut % (Auto) (50-75) % Lymph % (Auto) (25-40) % [place] % (Auto) (3-14) % Eos % (Auto) (2-4) % Baso % (Auto) (0-2) % Neut # (Auto) (1311-7701) /uL Lymph # (Auto) (8000-4566) /uL [place] # (Auto) (0-900) /uL Eos # (Auto) (0-450) /uL Baso # (Auto) (0-100) /uL D-Dimer (<230) ng/mL Sodium (137-145) mmol/L Potassium (3.4-5.1) mmol/L Chloride (98-107) mmol/L Carbon Dioxide (22-32) mmol/L BUN (7-17) mg/dL Creatinine (0.52-1.04) mg/dL Estimated GFR (>60) mL/min BUN/Creatinine Ratio (6-22) Glucose (70-100) mg/dL Calcium (8.4-10.2) mg/dL Magnesium (1.6-2.3) mg/dL Total Bilirubin (0.2-1.3) mg/dL AST (14-36) IU/L ALT (<35) IU/L Alkaline Phosphatase (38-126) U/L Troponin I (0.01-0.034) ng/mL NT-Pro-B Natriuret Pep (<125) pg/mL Total Protein (6.3-8.2) g/dL Albumin (3.5-5.0) g/dL Globulin (1.7-4.1) g/dL Albumin/Globulin Ratio (1.0-2.8) Urine Color Yellow Urine Appearance Cloudy Urine pH 6.0 (4.5-8.0) Ur Specific [place] 1.015 (1.000-1.035) Urine Protein Negative (Negative) Urine Glucose (UA) Trace H (Negative) g/dL Urine Ketones Negative (NEGATIVE) Urine Occult Blood 3+ H (Negative) Urine Nitrate Negative (Negative) Urine Bilirubin Negative (NEGATIVE) Urine Urobilinogen 0.2 (0.2) E.U./dL Ur Leukocyte Esterase 2+ H (NEGATIVE) Urine RBC 30-100/hpf H (0-5/HPF) Urine WBC 10-30/hpf H (0-5/HPF) Ur Squamous Epith Cells 5-10 /hpf H (0-5/HPF) Urine Bacteria Few (2-10) H (None) Ur Culture Indicated? Cult not indicated COVID-19 PCR Negative (Negative) Imaging Data CT scan - chest: Radiologist's Impression: Chart Viewer Diagnostics DATE TYPE STATUS REF RANGE/AUTHOR Hx 04/04/20 17:01 Gerardo Enamorado Maricar D 35, F0 1985 [facility] ER, Main ED R10 162.56cm 131.542kg BMI: 49.8kg/m? Chest Pain Search Chart No Data to Display Rash Rash and Hives ONSET Today 22:10 Yana Morejon 35 F 1985 [place] [address] CT Scan Report Signed Patient: Yana Morejon DMR#: [id number] : 1985Acct:[id number] Age/Sex: 35 / FDate of Service: 04/04/20 Loc: ED Accession Number: [id number] Procedure: CT angio chest PE protocol Ordering Provider: Shanti Begum MD PROCEDURE: CT ANGIO CHEST PE PROTOCOL INDICATIONS: dyspnea, orthopnea, tachycardia 10 days TECHNIQUE: After the administration of intravenous contrast, 2 mm thick sections acquired from the pulmonary apices to the posterior costophrenic angles. 3-dimensional maximum intensity projection (MIP) coronal and sagittal reformats were then acquired through the thorax. For radiation dose reduction, the following was used: automated exposure control, adjustment of mA and/or kV according to patient size. COMPARISON: None. FINDINGS: Image quality: Excellent. Pulmonary arteries: Pulmonary arteries are normal in size, and demonstrate no intraluminal filling defects to suggest central pulmonary embolism. Lungs and pleura: Generalized ground-glass opacities can be seen in a patchy fashion. No pleural effusions or pneumothorax. Central and peripheral airways are patent. Mediastinum: Heart size is moderately enlarged, without pericardial effusion. No mediastinal or hilar adenopathy. Thoracic aorta is normal in caliber and enhancement. Esophagus is normal in caliber, without hiatal hernia. Bones and chest wall: No suspicious bony lesions. Ribs and thoracic spine appear intact throughout. Thyroid gland demonstrates no significant abnormality. No axillary or supraclavicular adenopathy. Abdomen: There is reflux of contrast seen into the inferior vena cava and into the hepatic veins. Diffuse fatty liver infiltration is noted. Diffuse fatty liver infiltration is noted. Diffuse fatty liver infiltration is noted. The visualized portions of the upper abdominal structures are otherwise unremarkable for imaging technique. IMPRESSION: Negative for pulmonary embolism. Cardiomegaly, with apparent pulmonary edema, with reflux of contrast seen into the inferior vena cava and into the patent veins. Please correlate with cardiac dysfunction. Dictated by: Gerardo Enamorado M.D. on 04/04/2020 at 16:30 Approved by: Gerardo Enamorado M.D. on 04/04/2020 at 16:32 <Alcides Hunter DO - Last Filed: 04/04/20 22:37> Critical Care Time Critical Care Time: Yes Total Critical Care Time: 40 Attestation: The high probability of a clinically significant, sudden or life threatening deterioration of the [CV] system(s) required my full and direct attention, intervention and personal management. The aggregate critical care time was [40] minutes. This time is in addition to time spent performing reported procedures but includes the following: [x] Data Review and interpretation [x] Patient assessment and monitoring of vital signs [x] Documentation [x] Medication orders and management Discharge Plan Departure Patient Disposition: [facility] Clinical Impression: CHF (congestive heart failure) Qualifiers: Heart failure type: unspecified Heart failure chronicity: acute Qualified Code(s): I50.9 - Heart failure, unspecified Cardiomyopathy Qualifiers: Cardiomyopathy type: peripartum Qualified Code(s): O90.3 - Peripartum cardiomyopathy Discharge Date/Time: 04/04/20 22:37 Prescriptions: No Action prenat.vits,huy,[id number] Tablet 1 tab PO DAILY RF: 0 ibuprofen 800 mg tablet 800 mg PO BID RF: 0 Referrals: Mika Johnson PA-C [Primary Care Provider] - ED Sign-out <Shanti Begum MD - Last Filed: 04/12/20 00:00> Cosign ED Attending Ariana Attestation: I was immediately available in the department for consultation throughout this patient's visit. I agree with documentation as above. Shanti Begum MD
[2020-04-04 17:09] LABS: Add Manual Diff / Slide Review NO; Basophils Absolute Auto 100 /uL (0-100); Basophils Percent Auto 1.2 % (0-2); Eosinophils Absolute Auto 100 /uL (0-450); Eosinophils Percent Auto 1.4 % (2-4); Hematocrit 37.1 % (36-46); Hemoglobin 12.4 g/dL (12.0-16.0); Lymphocytes Absolute Auto 2800 /uL (1100-4500); Lymphocytes Percent Auto 28.2 % (25-40); Mean Corpuscular HGB Conc 33.5 % (30-36); Mean Corpuscular Hemoglobin 27.2 PG (26-34); Mean Corpuscular Volume 81.3 fL (80-100); Monocytes Absolute Auto 500 /uL (0-900); Neutrophils Absolute Auto 6500 /uL (1500-7000); Neutrophils Percent Auto 64.2 % (50-75); Platelet Count 327 X10^3/uL (150-400); Red Blood Cell Count 4.56 X10^6/uL (4.0-5.2); Red Cell Distribution Width 13.7 % (11.6-14.8); White Blood Cell Count 10.1 X10^3/uL (4.5-11.0)
[2020-04-04 17:18] LABS: D Dimer 281 ng/mL (<230)
[2020-04-04 17:22] LABS: Alanine Aminotransferase 18 IU/L (<35); Albumin 3.7 g/dL (3.5-5.0); Albumin Globulin Ratio 1.2 (1.0-2.8); Alkaline Phosphatase 74 U/L (38-126); Aspartate Aminotransferase 23 IU/L (14-36); BUN Creatinine Ratio 14.3 (6-22); Bilirubin Total 0.3 mg/dL (0.2-1.3); Blood Urea Nitrogen 9 mg/dL (7-17); Calcium 8.8 mg/dL (8.4-10.2); Carbon Dioxide 25 mmol/L (22-32); Chloride 106 mmol/L (98-107); Estimated Glomerular Filt Rate > 60.0 mL/min (>60); Globulin 3.2 g/dL (1.7-4.1); Glucose 102 mg/dL (70-100); HEMOLYSIS < 15 (0-50); Potassium 4.2 mmol/L (3.4-5.1); Sodium 138 mmol/L (137-145); Total Protein 6.9 g/dL (6.3-8.2)
[2020-04-04 17:31] LABS: NT-proBNP (BNP-Adult 18+) 331 pg/mL (<125)
[2020-04-04 17:35] LABS: Troponin I < 0.012 ng/mL (0.01-0.034)
[2020-04-04 17:45] LABS: Appearance Urine UA CLOUDY; Bilirubin Urine UA NEGATIVE (NEGATIVE); Color Urine UA YELLOW; Glucose Urine UA TRACE g/dL (Negative); Ketones Urine UA NEGATIVE (NEGATIVE); Leukocyte Esterase Urine UA 2+ (NEGATIVE); Nitrite Urine UA NEGATIVE (Negative); Occult Blood Urine UA 3+ (Negative); Protein Urine UA NEGATIVE (Negative); Specific Gravity Urine UA 1.015 (1.000-1.035); Urobilinogen Urine UA 0.2 E.U./dL (0.2)
[2020-04-04 17:59] LABS: Bacteria Urine Few (2-10); Culture Indicated Urine Cult Not Indicated; RBC Urine 30-100/HPF (0-5/HPF); Squamous Epithelial Cell Urine 5-10 /HPF (0-5/HPF); WBC Urine 10-30/HPF (0-5/HPF)
[2020-04-04 18:00] LABS: COVID19 -Nasal RAPID Negative (Negative)
[2020-04-04 19:14] VITALS: BP 126/62; PULSE 80; RESP 18; O2SAT 97
[2020-04-04] MEDS: FUROSEMIDE 40 MG/4 ML VIAL IV (20:18)
[2020-04-04 22:10] VITALS: BP 140/68; PULSE 94; RESP 28; O2SAT 98
[2020-04-04 22:35] VITALS: BP 115/59; PULSE 95; RESP 22; TEMP 36.9; O2SAT 97
== END 2020-04-04 22:37 | disposition short-term general hospital (02) ==
PROVIDERS: Emergency Medicine; Emergency Provider Emergency Medicine; PCP Physician Assistant
DX: O90.3 Peripartum cardiomyopathy (principal); O14.95 Unspecified pre-eclampsia, complicating the puerperium; R51.9 Headache, unspecified
CPT/HCPCS: 36415; 71275; 80053; 81001; 82565; 83735; 83880; 84450; 84460; 84484; 84520; 84550; 85025; 85379; 87635; 93005; 96374; 99284; 99291; J1940; Q9967

== ENCOUNTER → 2020-05-07 16:25 | Outpatient (CLI) | payer OTHER, SELFPAY ==
--- NOTE | 2020-05-07 16:26 | DI.RAD.S_ITS ---
PROCEDURE: XR CHEST 2V INDICATIONS: Cardiomyopathy, symptoms improved TECHNIQUE: 2 views of the chest were acquired. COMPARISON: None. FINDINGS: Surgical changes and devices: None. Lungs and pleura: Lungs are clear. No pleural effusions or pneumothorax. Mediastinum: Mediastinal contours are normal. Heart size is mildly increased. Bones and chest wall: No suspicious bony abnormalities. Soft tissues appear unremarkable. IMPRESSION: Mild cardiomegaly. No overt congestive heart failure. Dictated by: Anastasiia Moreland M.D. on 05/08/2020 at 8:49 Approved by: Anastasiia Moreland M.D. on 05/08/2020 at 8:50
[2020-05-07 16:57] LABS: Hemoglobin A1C% w Est Avg Glu 5.7 % (4.0-6.0)
[2020-05-07 17:06] LABS: Alanine Aminotransferase 29 IU/L (<35); Albumin 4.7 g/dL (3.5-5.0); Albumin Globulin Ratio 1.2 (1.0-2.8); Alkaline Phosphatase 66 U/L (38-126); Aspartate Aminotransferase 42 IU/L (14-36); BUN Creatinine Ratio 26.5 (6-22); Bilirubin Total 0.5 mg/dL (0.2-1.3); Blood Urea Nitrogen 18 mg/dL (7-17); Calcium 9.5 mg/dL (8.4-10.2); Carbon Dioxide 25 mmol/L (22-32); Chloride 104 mmol/L (98-107); Cholesterol 209 mg/dL (140-199); Estimated Glomerular Filt Rate > 60.0 mL/min (>60); Globulin 3.9 g/dL (1.7-4.1); Glucose 92 mg/dL (70-100); HDL Cholesterol 64 mg/dL (40-60); HEMOLYSIS < 15 (0-50); LDL Cholesterol Calculated 119 mg/dL (<100); Potassium 4.3 mmol/L (3.4-5.1); Sodium 137 mmol/L (137-145); Total Protein 8.6 g/dL (6.3-8.2); Triglycerides 130 mg/dL (35-150)
[2020-05-07 17:13] LABS: NT-proBNP (BNP-Adult 18+) 41 pg/mL (<125)
== END ==
PROVIDERS: PCP Family Medicine; Referring Provider Family Medicine; Visit Provider Family Medicine
DX: O90.3 Peripartum cardiomyopathy (principal); O24.419 Gestational diabetes mellitus in pregnancy, unspecified control; Z13.220 Encounter for screening for lipoid disorders
CPT/HCPCS: 36415; 71046; 80053; 80061; 83036; 83880

== ENCOUNTER → 2021-01-27 14:42 | Outpatient (CLI) | payer OTHER, SELFPAY ==
[2021-01-27 15:44] LABS: Add Manual Diff / Slide Review NO; Basophils Absolute Auto 0 /uL (0-100); Basophils Percent Auto 0.6 % (0-2); Eosinophils Absolute Auto 200 /uL (0-450); Hematocrit 41.2 % (36-46); Hemoglobin 13.7 g/dL (12.0-16.0); Lymphocytes Absolute Auto 3800 /uL (1100-4500); Lymphocytes Percent Auto 49.6 % (25-40); Mean Corpuscular HGB Conc 33.2 % (30-36); Mean Corpuscular Hemoglobin 27.4 PG (26-34); Mean Corpuscular Volume 82.6 fL (80-100); Monocytes Absolute Auto 400 /uL (0-900); Monocytes Percent Auto 5.4 % (3-14); Neutrophils Absolute Auto 3200 /uL (1500-7000); Neutrophils Percent Auto 41.4 % (50-75); Platelet Count 320 X10^3/uL (150-400); Red Blood Cell Count 4.98 X10^6/uL (4.0-5.2); Red Cell Distribution Width 12.6 % (11.6-14.8); White Blood Cell Count 7.7 X10^3/uL (4.5-11.0)
[2021-01-27 15:52] LABS: Hemoglobin A1C% w Est Avg Glu 5.7 % (4.0-6.0)
[2021-01-27 16:11] LABS: Alanine Aminotransferase 25 IU/L (<35); Albumin 4.4 g/dL (3.5-5.0); Albumin Globulin Ratio 1.2 (1.0-2.8); Alkaline Phosphatase 52 U/L (38-126); Aspartate Aminotransferase 29 IU/L (14-36); BUN Creatinine Ratio 17.7 (6-22); Bilirubin Total 0.5 mg/dL (0.2-1.3); Blood Urea Nitrogen 11 mg/dL (7-17); Calcium 9.3 mg/dL (8.4-10.2); Carbon Dioxide 26 mmol/L (22-32); Chloride 104 mmol/L (98-107); Cholesterol 199 mg/dL (140-199); Estimated Glomerular Filt Rate > 60.0 mL/min (>60); Globulin 3.6 g/dL (1.7-4.1); Glucose 90 mg/dL (70-100); HDL Cholesterol 60 mg/dL (40-60); HEMOLYSIS < 15 (0-50); LDL Cholesterol Calculated 116 mg/dL (<100); Potassium 4.3 mmol/L (3.4-5.1); Sodium 138 mmol/L (137-145); Triglycerides 117 mg/dL (35-150)
[2021-01-27 16:43] LABS: TSH w/ Reflex to FT4 2.52 uIU/mL (0.47-4.68)
== END ==
PROVIDERS: PCP Family Medicine; Referring Provider Family Medicine; Visit Provider Family Medicine
DX: O24.419 Gestational diabetes mellitus in pregnancy, unspecified control (principal); E78.5 Hyperlipidemia, unspecified
CPT/HCPCS: 36415; 80053; 80061; 83036; 84443; 85025